=== PATIENT | female | born 1950 | race Caucasian/White ===

== ENCOUNTER → 2020-10-24 | Outpatient (CLI) | payer MEDICARE, OTHER ==
[~2020-10-24] MED LIST: ANTIVERT 25MG T25 MG PO; CIPRO HC OTIC S10 ML EARLF; ECOTRIN81 MG PO; GLUCOSAMINE HC500 MG PO; K-DUR TAB 20 M20 MEQ PO; KEFLEX CAP 500500 MG PO; MEGA BIOTIN10000 MCG PO; NORVASC 5 MG TAB5 MG PO; THERAGRAN M TAB1 EA PO; ZOCOR20 MG PO; ZOFRAN ODT 4 MG4 MG PO; ZYRTEC10 MG PO
== END ==
LOC: HEART 5 15:00
DX: R00.2 Palpitations (principal)

== ENCOUNTER → 2020-12-29 | Outpatient (CLI) | payer MEDICARE, OTHER | LOC: KOH-I 11:21 | DX: R59.0 Localized enlarged lymph nodes (principal) | CPT/HCPCS: 71250 ==

== ENCOUNTER → 2021-02-02 | Outpatient (CLI) | payer MEDICARE, OTHER | LOC: HEART 5 09:20 | DX: R06.02 Shortness of breath (principal) | CPT/HCPCS: 94010 ==